=== PATIENT | female | born 1950 | race Hispanic/Latino ===

== ENCOUNTER 2017-03-20 13:11 | Outpatient (CLI) | payer MEDICAID ==
--- NOTE | 2017-03-20 15:23 | Cat Scan Report ---
CT CHEST WITHOUT AND WITH CONTRAST: 03/20/17 13:11:00 CLINICAL: History of anal cancer. Comparison: 08/05/14 TECHNIQUE: Volumetric acquisition and 1.25 mm axial scan reconstructions without contrast and after the uneventful intravenous injection of 100cc Omnipaque 300. Consent was obtained prior to the administration of contrast. FINDINGS: Stable mild to moderate emphysema. No pulmonary nodule or mass. Stable bibasal probable scarring. Normal heart and aorta. No hilar or mediastinal lymphadenopathy. No pleural effusion. Normal thyroid, trachea and esophagus. No axillary or supraclavicular lymphadenopathy. The upper abdomen is remarkable for stable numerous hypodensities of the liver and spleen. Post surgical changes with clips and sutures at the diaphragmatic hiatus. The bones and soft tissues are normal. IMPRESSION: 1. No evidence of metastasis. 2. Stable emphysema. 3. No evidence of new primary tumor. 4. Benign hepatic and splenic hypodensities are likely tiny benign cysts. A
== END 2017-03-20 13:12 | disposition home or self-care (01) ==
LOC: SPVIMAG 13:11
PROVIDERS: ATTEND Internal Medicine Hematology
DX: C21.1 Malignant neoplasm of anal canal (principal); J43.9 Emphysema, unspecified
CPT/HCPCS: 71270; Q9967